=== PATIENT | female | born 1985 | race African-American/Black ===

== ENCOUNTER 2017-06-17 09:10 | Emergency (ER) | payer OTHER ==
[~2017-06-17] VITALS: Ht 160 cm; Wt 63.5 kg
--- NOTE | ~2017-06-17 | US98 ---
[facility] A Service of [facility] RADIOLOGY TEXT RESULTS PATIENT: SUNNY GREGORY LOCATION: [facility] : 84 UNIT #: [id number] AGE: [address]: Vanessa Caicedo SEX: F ORDER DR: [id number] [facility] [address] [place], [place] [address] [id number] E MR#: [id number] Acc #: [id number] NAME: SUNNY GREGORY : 1985 SEX: F STUDY DATE/TIME: 06/17/2017 10:05 UNIT: [facility] ROOM: STUDY DESCRIPTION: US Pelvic Non-OB Complete Attending Physician: Vanessa Caicedo P.A.-C. Ordering Physician: Vanessa Caicedo P.A.-C. Primary Care Physician: Conchita Primary Care Physician MEDICAL IMAGING REPORT This report is preliminary unless electronic signature is present EXAM Pelvic ultrasound 06/17/2017. INDICATIONS Pelvic pain for 1 day. Heavy bleeding. History of polycystic ovaries. TECHNIQUE Transabdominal and transvaginal imaging is performed of the pelvis in multiple planes. Transvaginal imaging was performed for better evaluation of the endometrium and adnexa. COMPARISON No comparison. FINDINGS Uterus measures about 4.1 x 3.4 x 6.8 cm. Myometrium is normal. The endometrial stripe is normal at about 6 mm. Both ovaries show perfusion by Doppler. There are 2 dominant follicles on the right ovary. 1 of these measures up to about 1.4 cm. The other is similar in size. No adnexal masses. IMPRESSION 1. Normal uterus and endometrial stripe. 2. Both ovaries show perfusion by Doppler. 3. 2 dominant follicles on the right ovary, both of which measure up to about 1.4 cm. Dictated by... Hollis Gottlieb Jr., M.D. THIS IS AN ELECTRONICALLY VERIFIED REPORT Hollis Gottlieb Jr., M.D. at 06/17/2017 5:20 PM [facility] A Service of [facility] RADIOLOGY TEXT RESULTS PATIENT: SUNNY GREGORY LOCATION: [facility] : 84 UNIT #: [id number] AGE: [address]: Vanessa Caicedo SEX: F ORDER DR: ELMA/kenneth TD: 06/17/2017 14:54 JOB #: [id number] MEDICAL IMAGING REPORT Page 1 of 1 COPY
[2017-06-17 09:48] LABS: URINE SOURCE CLEAN CATCH
[2017-06-17 10:00] LABS: URINE APPEARANCE CLOUDY; URINE BILIRUBIN NEG (NEG); URINE BLOOD 4+ (NEG); URINE COLOR RED; URINE GLUCOSE NORM (NORM); URINE KETONE NEG (NEG); URINE LEUKOCYTE ESTERASE 1+ (NEG); URINE NITRATE NEG (NEG); URINE PH 6.5 (5-8); URINE PROTEIN 3+ (NEG); URINE UROBILINOGEN NORM (NORM)
[2017-06-17 10:09] LABS: URBCS1 AUWI INNUM /[HPF] (0-2); URINE SQUAMOUS EPITHELIAL CELL MOD /[HPF]
[2017-06-17 10:10] LABS: CULTURE INDICATED? YES; URINE BACTERIA AUWI 4+ (NEGATIVE); URINE MUCUS PRESENT; URINE TRICHOMONAS PRESENT; UWBCS1 AUWI 100-200 (0-5)
[2017-06-17 10:15] LABS: BASOPHIL% 0.6 % (0-2.5); DIFF IND NO; EOSINOPHIL# 0.1 X10e3 (0-0.7); EOSINOPHIL% 0.9 % (0.0-7.0); HEMATOCRIT 41.2 % (35.0-45.0); HEMOGLOBIN 13.7 gm/dL (12.0-16.0); LYMPHOCYTE# 1.4 X10e3 (1.0-3.5); LYMPHOCYTE% 23.1 % (17.0-45.0); MEAN CELL VOLUME 89.7 FL (83-96); MEAN CORPUSCULAR HEMOGLOBIN 29.9 PG (28-34); MEAN CORPUSCULAR HGB CONC 33.3 g/dL (30-36); MEAN PLATELET VOLUME 9.8 FL (6.5-11.5); MONOCYTE# 0.6 X10e3 (0-1.0); MONOCYTE% 10.1 % (3.0-12.0); NEUTROPHIL% 65.3 % (40-75); PLATELET COUNT 243 X10e3 (140-420); RED CELL DISTRIBUTION WIDTH 12.6 % (11.0-15.5); WHITE BLOOD COUNT 6.1 X10e3 (4.0-10.5)
[2017-06-18 20:06] LABS: CHLAMYDIA TRACH Not Detected (Not Detected); N GONOR Not Detected (Not Detected)
== END 2017-06-17 12:55 | disposition home or self-care (01) ==
LOC: CFTX 09:10 → CED 09:10 → CFTX 09:48 → CED 09:48 → CFTX 12:55
PROVIDERS: Physician Assistant
DX: A59.03 Trichomonal cystitis and urethritis (principal); N73.0 Acute parametritis and pelvic cellulitis; F17.210 Nicotine dependence, cigarettes, uncomplicated; Z88.0 Allergy status to penicillin; Z88.2 Allergy status to sulfonamides
CPT/HCPCS: 36415; 76830; 76856; 81003; 84703; 85025; 87086; 87491; 87591; 87808; 87905; 96361; 96374; 99284; J1885

== ENCOUNTER 2017-07-01 19:03 | Emergency (ER) | payer OTHER ==
[~2017-07-01] VITALS: Ht 160 cm; Wt 68.0 kg
--- NOTE | ~2017-07-01 | CR21 ---
[facility] A Service of [facility] RADIOLOGY TEXT RESULTS PATIENT: SUNNY GREGORY LOCATION: [facility] : 84 UNIT #: [id number] AGE: [address]: Vladislav Mendoza MD SEX: F ORDER DR: [id number] [facility] [address] [place], [place] [address] [id number] E MR#: [id number] Acc #: [id number] NAME: SUNNY GREGORY : 1985 SEX: F STUDY DATE/TIME: 07/01/2017 20:10 UNIT: [facility] ROOM: STUDY DESCRIPTION: CR Ankle Min 3 Views Rt Attending Physician: Vladislav Mendoza M.D. Ordering Physician: Vladislav Mendoza M.D. Primary Care Physician: No Primary Care Physician MEDICAL IMAGING REPORT This report is preliminary unless electronic signature is present EXAM Right ankle 07/01/2017. HISTORY 31-year-old female with right foot and ankle pain status post fall and being pulled by dogs today. COMPARISON Right foot same date. FINDINGS 3 views of the right ankle demonstrate no acute fracture or dislocation. Ankle mortise symmetric. Talar dome intact. No joint effusion. Soft tissues are unremarkable. IMPRESSION Unremarkable right ankle. Dictated by... John Nieves M.D. THIS IS AN ELECTRONICALLY VERIFIED REPORT John Nieves M.D. at 07/02/2017 5:10 PM ALBER/steve TD: 07/02/2017 09:37 JOB #: [id number] MEDICAL IMAGING REPORT Page 1 of 1 COPY
--- NOTE | ~2017-07-01 | CR127 ---
[facility] A Service of [facility] RADIOLOGY TEXT RESULTS PATIENT: SUNNY GREGORY LOCATION: [facility] : 83 UNIT #: [id number] AGE: [address]: Vladislav Mendoza MD SEX: F ORDER DR: [id number] [facility] [address] [place], [place] [address] [id number] E MR#: [id number] Acc #: [id number] NAME: SUNNY GREGORY : 1985 SEX: F STUDY DATE/TIME: 07/01/2017 20:08 UNIT: [facility] ROOM: STUDY DESCRIPTION: CR Foot Complete Min 3 View Rt Attending Physician: Vladislav Mendoza M.D. Ordering Physician: Vladislav Mendoza M.D. Primary Care Physician: Primary Care Physician No MEDICAL IMAGING REPORT This report is preliminary unless electronic signature is present EXAM Right foot 07/01/1970 HISTORY 31-year-old female with right foot and ankle pain status post fall and being pulled by dog today. COMPARISON Right ankle same date. FINDINGS Three views of the right foot demonstrate no acute fracture or dislocation. Soft tissues unremarkable. No joint effusion. IMPRESSION Unremarkable right foot Dictated by... John Nieves M.D. THIS IS AN ELECTRONICALLY VERIFIED REPORT John Nieves M.D. at 07/02/2017 5:09 PM ALBER/litzy TD: 07/02/2017 09:56 JOB #: [id number] MEDICAL IMAGING REPORT Page 1 of 1 COPY
== END 2017-07-01 21:25 | disposition home or self-care (01) ==
LOC: CFTX 19:03 → CED 19:03 → CFTX 21:08
DX: S93.401A Sprain of unspecified ligament of right ankle, initial encounter (principal); S93.601A Unspecified sprain of right foot, initial encounter; F17.200 Nicotine dependence, unspecified, uncomplicated; Z88.0 Allergy status to penicillin; Z88.2 Allergy status to sulfonamides; X50.1XXA Overexertion from prolonged static or awkward postures, initial encounter; Y92.488 Other paved roadways as the place of occurrence of the external cause
CPT/HCPCS: 29540; 73610; 73630; 99283

== ENCOUNTER 2017-07-09 07:29 | Emergency (ER) | payer OTHER ==
[~2017-07-09] VITALS: Ht 160 cm; Wt 68.0 kg
== END 2017-07-09 08:10 | disposition home or self-care (01) ==
LOC: CED 07:29
DX: S93.401A Sprain of unspecified ligament of right ankle, initial encounter (principal); F17.210 Nicotine dependence, cigarettes, uncomplicated; Z88.0 Allergy status to penicillin; Z88.2 Allergy status to sulfonamides; X50.1XXA Overexertion from prolonged static or awkward postures, initial encounter; Y92.098 Other place in other non-institutional residence as the place of occurrence of the external cause
CPT/HCPCS: 29540; 99283